=== PATIENT | female | born 1985 ===

== ENCOUNTER 2022-04-19 13:15 | Emergency (ER) | payer OTHER, SELFPAY ==
[2022-04-19] MEDS ORDERED: ALBUTEROL 2.5 MG/3 ML NEB SOL ONE (13:51)
[2022-04-19] MEDS ORDERED: METHYLPREDNISOLONE 125 MG INJ ONE (13:51)
[2022-04-19] MEDS ORDERED: IPRATROPIUM BROM 0.5MG/2.5ML ONE (13:51)
[2022-04-19] MEDS ORDERED: EPINEPHRINE INH 0.5 ML VIAL IH ONE (13:52)
[2022-04-19] MEDS ORDERED: LEVALBUTEROL 1.25 MG/3 ML NEB ONE (13:53)
[2022-04-19] MEDS ORDERED: Magnesium Sulfate 2gm IVPB 2 G/50 ML BAG IV ONE (13:55)
[2022-04-19] MEDS ORDERED: EPINEPHRINE/PF 1 MG/ML AMP ONE (14:21)
[2022-04-19] MEDS ORDERED: NA CHLORIDE 0.9% IV ONE ×2 (15:00)
[2022-04-19] MEDS ORDERED: CEFUROXIME IV ONE ×2 (15:00)
[2022-04-19] MEDS ORDERED: CEFTRIAXONE 1000 MG/VIAL ONE (15:01)
[2022-04-19] MEDS ORDERED: NA CHLORIDE 0.9% 50 ML ONE (15:01)
--- NOTE | 2022-04-19 15:35 | RAD REPORT ---
EXAM DESCRIPTION: RAD - Neck Soft Tissue - 04/19/2022 3:28 pm CLINICAL HISTORY: Sore throat FINDINGS: The pharynx is poorly distended with air and not well evaluated. No gross abnormality seen . Subglottic trachea appears unremarkable. Prevertebral soft tissue normal
[2022-04-19] MEDS ORDERED: CODEINE 12mg/APAP 120mg PER 5 ML UCUP ONE (15:59)
--- NOTE | 2022-04-19 17:23 | RAD REPORT ---
EXAM DESCRIPTION: CT - Soft Tissue Neck W/Contr - 04/19/2022 5:16 pm CLINICAL HISTORY: Neck pain with stridor COMPARISON: None. TECHNIQUE: Computed axial tomography of the neck was obtained. 50 cc Isovue 300 was administered in travenously. Coronal and sagittal reconstruction was performed. All CT scans are performed using dose optimization technique as appropriate and may include automated exposure control or mA/KV adjustment according to patient size. FINDINGS: The pharynx, tongue base, larynx and subglottic trachea appear unremarkable The parotid, submandibular and thyroid glands appear unremarkable. No lymphadenopathy is seen The sinuses and mastoids are clear. IMPRESSION: Unremarkable examination.
--- NOTE | 2022-04-19 18:10 | EDPHYS ---
Physician Documentation [facility] Name: Jackie Mims Age: 36 yrs Sex: Female : 1985 Arrival Date: 04/19/2022 Time: 13:17 Bed 7 Private MD: ED Physician Tobin Rae HPI: 04/19 16:50 This 36 yrs old Female presents to ER via EMS with complaints of Difficulty kdr breathing/stridor. 16:50 The patient has shortness of breath at rest, with light activity. Onset: The kdr symptoms/episode began/occurred suddenly, just prior to arrival. Duration: The symptoms are continuous, but are steadily getting better, EMS reports that the patient has improved since giving 0.3 mg of epinephrine and initiating a DuoNeb in route to the hospital. Patient still appears mildly dyspneic. The patient's shortness of breath is aggravated by exertion, talking. Associated signs and symptoms: The patient has no apparent associated signs or symptoms. Severity of symptoms: At their worst the symptoms were mild. The patient has not experienced similar symptoms in the past. The patient has not recently seen a physician. Patient presents to the ED via EMS. Patient [place] when she suddenly became short of breath. She felt like her throat was closing up. EMS initiated 0.3 mg of epinephrine and a DuoNeb in route to the hospital. EMS reports that the patient did improve since their initial contact. On arrival in the ED, the patient appears mildly dyspneic but improved. She does not currently require intubation. Her heart rate is mildly to moderately tachycardic in 120s her respiratory rate is around 25-30. She is afebrile. Blood pressures stable. Patient states that she has emigrated here from [place]. She has a history of bronchiectasis. She is normally on several medications including antibiotics on a routine basis but has not taken any of her appropriate meds for the past 2 months since her arrival in the . Patient otherwise has no focal complaint.. 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 - Social history:: Smoking status: Patient denies any tobacco usage or history of. ROS: 16:50 Constitutional: Negative for fever, chills, and weight loss, Eyes: Negative for injury, kdr pain, redness, and discharge, Neck: Negative for injury, pain, and swelling, Cardiovascular: Negative for chest pain, palpitations, and edema, Abdomen/GI: Negative for abdominal pain, nausea, vomiting, diarrhea, and constipation, Back: Negative for injury and pain, : Negative for injury, bleeding, discharge, and swelling, MS/Extremity: Negative for injury and deformity, Skin: Negative for injury, rash, and discoloration, Neuro: Negative for headache, weakness, numbness, tingling, and seizure activity. Psych: Negative for depression, anxiety, suicide ideation, homicidal ideation, and hallucinations, Allergy/Immunology: Negative for hives, rash, and allergies, Endocrine: Negative for neck swelling, polydipsia, polyuria, polyphagia, and marked weight changes, Hematologic/Lymphatic: Negative for swollen nodes, abnormal bleeding, and unusual bruising. 16:50 Respiratory: Positive for cough, with no reported sputum, dyspnea on exertion, hemoptysis, orthopnea, shortness of breath, Negative for hemoptysis, orthopnea, pleurisy, sputum production, wheezing. Exam: 16:50 Constitutional: This is a well developed, well nourished patient who is awake, alert, kdr and in no acute distress. Head/Face: Normocephalic, atraumatic. Eyes: Pupils equal round and reactive to light, extra-ocular motions intact. Lids and lashes normal. Conjunctiva and sclera are non-icteric and not injected. Cornea within normal limits. Periorbital areas with no swelling, redness, or edema. Neck: Trachea midline, no thyromegaly or masses palpated, and no cervical lymphadenopathy. Supple, full range of motion without nuchal rigidity, or vertebral point tenderness. No Meningismus. Chest/axilla: Normal chest wall appearance and motion. Nontender with no deformity. No lesions are appreciated. Cardiovascular: Regular rate and rhythm with a normal S1 and S2. No gallops, murmurs, or rubs. Normal PMI, no JVD. No pulse deficits. Respiratory: Lungs have equal breath sounds bilaterally, clear to auscultation and percussion. No rales, rhonchi or wheezes noted. No increased work of breathing, no retractions or nasal flaring. Abdomen/GI: Soft, non-tender, with normal bowel sounds. No distension or tympany. No guarding or rebound. No evidence of tenderness throughout. Back: No spinal tenderness. No costovertebral tenderness. Full range of motion. 16:50 Respiratory: mild respiratory distress is noted, Respirations: no acute changes, Breath sounds: no acute changes. Vital Signs: 13:19 BP 145 / 89; Pulse 120; Resp 20; Temp 99.7; Pulse Ox 100% on R/A; Weight 61.23 kg; jl7 Height 5 ft. 2 in. (160 cm); Pain 0/10; 13:45 BP 134 / 82; Pulse 130; Resp 19; Pulse Ox 100% on R/A; jl7 14:30 BP 140 / 74; Pulse 128; Resp 20; Pulse Ox 99% ; jl7 16:03 BP 123 / 75; Pulse 114; Resp 19; Pulse Ox 99% on Simple Mask; jl7 16:46 BP 110 / 65; Pulse 109; Resp 15; Pulse Ox 98% ; jl7 17:36 BP 117 / 72; Pulse 96; Resp 15; Pulse Ox 99% ; jl7 13:19 Body Mass Index 23.92 (61.23 kg, 160 cm) 7 MDM: 16:50 Data reviewed: vital signs, nurses notes, lab test result(s), radiologic studies. kdr Counseling: I had a detailed discussion with the patient and/or guardian regarding: the historical points, exam findings, and any diagnostic results supporting the discharge/admit diagnosis. 17:21 ED course: Patient has slowly improved though she still has a stridorous cough. Her kdr lung peters remain clear and without coughing she is not stridorous. Saturations are good and she continues to slowly improve. The plain film of her neck did not evidence any concerning pathology but was not optimal for fully imaging soft tissue of the neck. We will follow with the CT which is currently pending. 18:09 Patient medically screened. kdr 04/19 15:00 Order name: Neck Soft Tissue XRAY; Complete Time: 15:46 kdr 04/19 16:16 Order name: CT Soft Tissue Neck W/contr; Complete Time: 17:50 kdr Administered Medications: 13:48 Drug: SOLU-Medrol (methylPrednisoLONE) 125 mg Route: IVP; Site: right hand; vg1 16:35 Follow up: Response: No adverse reaction jl7 13:51 Drug: Magnesium Sulfate 2 grams Route: IVPB; Infused Over: 2 hrs; Site: right hand; vg1 14:51 Follow up: Response: No adverse reaction; IV Status: Completed infusion jl7 13:53 Drug: Albuterol - atroVENT (ipratropium) (3:1) (2.5 mg - 0.5 mg) 3 ml Route: Nebulizer; vg1 16:35 Follow up: Response: No adverse reaction jl7 13:53 Drug: Racemic EPINPHrine 0.5 ml Route: Inhalation; vg1 14:28 Drug: EPINEPHrine 1mg/mL 1:1,000 0.3 mg Route: IM; Site: right vastus lateralis; jl7 16:35 Follow up: Response: No adverse reaction jl7 14:47 Not Given (unavailablee): CefUROXime 1.5 grams IVPB once over 30 mins; (mix in 100 mL jl7 NS) 15:55 Drug: Tylenol-Codeine Elixer - Acetaminophen-Codeine Liquid (300mg-30mg / 12.5 mL) 2 jl7 tsp Route: PO; 16:36 Follow up: Response: No adverse reaction jl7 Disposition Summary: 04/19/22 18:09 Discharge Ordered Location: Home kdr Problem: new kdr Symptoms: are resolved kdr Condition: Stable kdr Diagnosis - Shortness of breath kdr - Anxiety disorder, unspecified kdr - Stridor kdr Followup: kdr - With: Private Physician - When: 2 - 3 days - Reason: If symptoms return, Further diagnostic work-up, Recheck today's complaints, Continuance of care, Re-evaluation by your physician Discharge Instructions: - Discharge Summary Sheet kdr - Shortness of Breath, Adult, [id number] kdr - Panic Attack, [id number] kdr Forms: - Medication Reconciliation Form kdr - Thank You Letter kdr Prescriptions: - Medrol (Saul) 4 mg Oral Tablets, Dose Pack - take 1 tablet by ORAL route as directed - follow package instructions; 1 kdr packet; Refills: 0, Product Selection Permitted - albuterol sulfate 90 mcg/actuation Inhalation HFA aerosol inhaler - inhale 2 puff by INHALATION route every 4 hours As needed; 2 canister; Refills: kdr 0, Product Selection Permitted - Tessalon Perles 100 mg Oral Capsule - take 1 capsule by ORAL route every 8 hours As needed; 15 capsule; Refills: 0, kdr Product Selection Permitted Signatures: Dispatcher [employer] Tobin Stafford MD MD kdr Leal, Jahala, RN RN jl7 Elizabeth Scott RN RN vg1 Corrections: (The following items were deleted from the chart) 17:36 17:35 Home Meds: bronchiectasis; moustapha jl7
--- NOTE | 2022-04-19 18:10 | ER ---
Nurse's Notes [facility] Name: Jackie Mims Age: 36 yrs Sex: Female : 1985 Arrival Date: 04/19/2022 Time: 13:17 Bed 7 Private MD: Diagnosis: Shortness of breath;Anxiety disorder, unspecified;Stridor Presentation: 04/19 13:19 Chief complaint: EMS states: Toned out for difficulty breathing, pt was at [place] [id number] and grabbing her throat on EMS arrival, Epi 0.3 mg IM given and DueNeb x 2 given in route, pt with hx of Asthma, pt reports improvement in symptoms. Coronavirus screen: Vaccine status: Patient reports receiving the 2nd dose of the covid vaccine. At this time, the client does not indicate any symptoms associated with coronavirus-19. Ebola Screen: No symptoms or risks identified at this time. Initial Sepsis Screen: Does the patient meet any 2 criteria? No. Patient's initial sepsis screen is negative. Does the patient have a suspected source of infection? No. Patient's initial sepsis screen is negative. Risk Assessment: Do you want to hurt yourself or someone else? Patient reports no desire to harm self or others. Onset of symptoms was April 19, 2022. Care prior to arrival: Medication(s) given: Normal saline infusion, 500 mL, 0.3 mg EPI IM IV initiated. 22 GA, in the right hand, Med neb given. Oxygen administered. via a nebulizer mask. 13:19 Method Of Arrival: EMS: [facility] 13:19 Acuity: HIEN 3 jl7 Triage Assessment: 13:30 General: Appears in no apparent distress. uncomfortable, Behavior is calm, cooperative, jl7 appropriate for age. Pain: Denies pain. Neuro: Level of Consciousness is awake, alert, obeys commands, Oriented to person, place, time, situation. Cardiovascular: Patient's skin is warm and dry. Rhythm is regular. Respiratory: Airway is patent Respiratory effort is even, unlabored, Respiratory pattern is regular, symmetrical. Derm: Skin is pink, warm \T\ dry. 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 - Social history:: Smoking status: Patient denies any tobacco usage or history of. Screenin:00 Abuse screen: Denies threats or abuse. Denies injuries from another. Nutritional jl7 screening: No deficits noted. Tuberculosis screening: No symptoms or risk factors identified. Fall Risk IV access (20 points). Total Bass Fall Scale indicates No Risk (0-24 pts). Assessment: 13:30 General: See triage. [facility] 13:50 Reassessment: Pt began coughing, pt reports difficulty breathing, stridor noted, Dr. moustapha Rae gave VO for racemic epi. 14:25 Reassessment: Continued stridor noted with difficulty breathing, O2 98%, Dr. Butch gerard gave VO for 0.3 mg EPI IM, pt medicated as ordered. 15:55 Reassessment: Pt reports sore throat, pain with coughing, Dr. Rae gave VO for 2 tsp chris Tylenol with codeine Elixir. Pt medicated as ordered. 17:36 Reassessment: Patient appears in no apparent distress at this time. Patient and/or jl7 family updated on plan of care and expected duration. Pain level reassessed. Patient is alert, oriented x 3, equal unlabored respirations, skin warm/dry/pink. Vital Signs: 13:19 BP 145 / 89; Pulse 120; Resp 20; Temp 99.7; Pulse Ox 100% on R/A; Weight 61.23 kg; 7 Height 5 ft. 2 in. (160 cm); Pain 0/10; 13:45 BP 134 / 82; Pulse 130; Resp 19; Pulse Ox 100% on R/A; jl7 14:30 BP 140 / 74; Pulse 128; Resp 20; Pulse Ox 99% ; jl7 16:03 BP 123 / 75; Pulse 114; Resp 19; Pulse Ox 99% on Simple Mask; jl7 16:46 BP 110 / 65; Pulse 109; Resp 15; Pulse Ox 98% ; jl7 17:36 BP 117 / 72; Pulse 96; Resp 15; Pulse Ox 99% ; jl7 13:19 Body Mass Index 23.92 (61.23 kg, 160 cm) jl7 ED Course: 13:17 Patient arrived in ED. eb 13:17 Tobin Rae MD is Attending Physician. kdr 13:19 Jose Klein RN is Primary Nurse. jl7 13:30 Triage completed. jl7 13:30 Arm band placed on right wrist. jl7 13:30 Patient has correct armband on for positive identification. Bed in low position. Call jl7 light in reach. Side rails up X2. Client placed on continuous cardiac and pulse oximetry monitoring. NIBP monitoring applied. 13:30 Warm blanket given. jl7 13:45 Initial lab(s) drawn, by ED staff, sent to lab. Maintain EMS IV. Dressing intact. Good jl7 blood return noted. Site clean \T\ dry. Gauge \T\ site: 22 R hand. 15:11 Patient on continuous cool mist. Patient tolerated well. Education provided to the eb2 patient regarding: Other: drinking cold ice water to a very minimum. Respiratory: Reports that she has something in her throat. She feels like her throat closes when she coughs. No obvious swelling noted. Upon auscultation normal air movement noted. Provider notified. 15:30 Neck Soft Tissue XRAY In Process Unspecified. EDMS 17:18 CT Soft Tissue Neck W/contr In Process Unspecified. EDMS 18:31 No provider procedures requiring assistance completed. IV discontinued, intact, jl7 bleeding controlled, No redness/swelling at site. Pressure dressing applied. Administered Medications: 13:48 Drug: SOLU-Medrol (methylPrednisoLONE) 125 mg Route: IVP; Site: right hand; vg1 16:35 Follow up: Response: No adverse reaction jl7 13:51 Drug: Magnesium Sulfate 2 grams Route: IVPB; Infused Over: 2 hrs; Site: right hand; vg1 14:51 Follow up: Response: No adverse reaction; IV Status: Completed infusion jl7 13:53 Drug: Albuterol - atroVENT (ipratropium) (3:1) (2.5 mg - 0.5 mg) 3 ml Route: Nebulizer; vg1 16:35 Follow up: Response: No adverse reaction jl7 13:53 Drug: Racemic EPINPHrine 0.5 ml Route: Inhalation; vg1 14:28 Drug: EPINEPHrine 1mg/mL 1:1,000 0.3 mg Route: IM; Site: right vastus lateralis; jl7 16:35 Follow up: Response: No adverse reaction jl7 14:47 Not Given (unavailablee): CefUROXime 1.5 grams IVPB once over 30 mins; (mix in 100 mL jl7 NS) 15:55 Drug: Tylenol-Codeine Elixer - Acetaminophen-Codeine Liquid (300mg-30mg / 12.5 mL) 2 jl7 tsp Route: PO; 16:36 Follow up: Response: No adverse reaction jl7 Medication: 18:31 VIS not applicable for this client. jl7 Outcome: 18:09 Discharge ordered by . kdr 18:31 Discharged to home via wheelchair, with family. jl7 18:31 Condition: stable 18:31 Discharge instructions given to patient, family, Instructed on discharge instructions, follow up and referral plans. medication usage, Demonstrated understanding of instructions, follow-up care, medications, Prescriptions given X 3. 18:31 Patient left the ED. 7 Signatures: Dispatcher [employer] EDMS Tobin Rae MD MD kdr Leal, Jahala, RN RN jl7 Gaye Su Elisa, R/T R/T eb2 Elizabeth Scott, RN RN vg1 Corrections: (The following items were deleted from the chart) 17:36 17:35 Home Meds: bronchiectasis; jl7 jl7
[2022-04-19 18:38] VITALS: TEMP 99.7
[2022-04-19 19:15] VITALS: BP 117/72; O2SAT 99
== END 2022-04-19 18:31 | disposition home or self-care (01) ==
LOC: ER 13:15
DX: R06.02 Shortness of breath (principal); R06.1 Stridor; F41.9 Anxiety disorder, unspecified; J45.909 Unspecified asthma, uncomplicated; Z88.0 Allergy status to penicillin
CPT/HCPCS: 70491; 70360; Q9967; J0171; J3475; J2930; 94640; 96365; 96372; 96375; 99285